=== PATIENT | male | born 1960 | race Caucasian/White ===

== ENCOUNTER → 2019-01-17 | Outpatient (REF) ==
[~2019-01-17] MED LIST: ALB18R INH; AMOX-559 PO; AZIT-1 PO; BARIUM SULFATE 176 GM BTL PO ONE; BARIUM SULFATE 340 GM POWD ONE; CIPR-214 PO; CYCL10TA29 PO; DOCU-416 PO; HYDR-653 PO; KET10 PO; ONDA4TAB97 PO; OXYC-865 PO; PANT40SU3 PO; PRED20TA6 PO
--- NOTE | 2019-01-17 13:40 | RADIOLOGY IMAGING REPORT ---
FACILITY: [facility] PATIENT NAME: Delano Bal : 1960 MR: [id number] V: [id number] EXAM DATE: ORDERING PHYSICIAN: EDYTA DELUCA TECHNOLOGIST: Location: [facility] - [place] Patient: Delano Bal : 1960 Visit/Account:[id number] Date of Sevice: 01/17/2019 TESTICULAR HISTORY: Left testicular swelling COMPARISON: None. FINDINGS: Testes: Right testicle measures 4.4 x 2.7 x 2.8 cm. The left testicle measures 4.5 x 2.9 x 2.9 cm. Symmetric and unremarkable blood flow documented by color and Duplex Doppler ultrasound. Epididymides: Not visualized at this time ultrasound. Hydrocele: Very large on the left and small on the right Varicocele: None. IMPRESSION: Very large left hydrocele Small right hydrocele Report Dictated By: Nahed Khoury MD at 01/17/2019 1:30 PM Report E-Signed By: Nahed Khoury MD at 01/17/2019 1:31 PM WSN:[email or web address]
--- NOTE | 2019-01-17 13:58 | RADIOLOGY IMAGING REPORT ---
[place] [facility] [place]IENT NAME: Delano Bal : 1960 MR: [id number] V: [id number] EXAM DATE: ORDERING PHYSICIAN: EDYTA DELUCA TECHNOLOGIST: Location: [facility] - [place] Patient: Delano Bal : 1960 Visit/Account:[id number] Date of Sevice: 01/17/2019 Exam type: XR UPPER GI SERIES W/O KUB History: Vomiting 30 minutes after eating Comparison: Acute abdomen series February 26, 2015. Findings: Double contrast upper chest series was performed with thick and thin barium. There is a small slidin g hiatal hernia with a large amount of gastroesophageal reflux observed. There is very mild narrowin g of the lower esophageal sphincter. No abnormality of the stomach duodenal bulb or duodenal C-loop was seen. Incidentally noted is an approximate 1.6 cm nodule in the left lower lobe. This appears relatively u nchanged when compared to the prior acute abdomen series of February 26, 2015 The dose area product is 497.14 micro-Wang per meter squared IMPRESSION: 1. Small sliding hiatal hernia with a large amount of gastroesophageal reflux. Very mild narrowing of the lower esophageal sphincter Incidental note of an approximate 1.6 cm nodule in the left lower lobe. This appears well totally un changed when compared to the prior acute abdomen series dated February 26, 2015 Report Dictated By: Nahed Khoury MD at 01/17/2019 1:44 PM Report E-Signed By: Nahed Khoury MD at 01/17/2019 1:50 PM WSN:[email or web address]
== END ==
LOC: US 01:07
PROVIDERS: ATTEND Nurse Practitioner
DX: N43.3 Hydrocele, unspecified (principal); K44.9 Diaphragmatic hernia without obstruction or gangrene; K21.9 Gastro-esophageal reflux disease without esophagitis
CPT/HCPCS: 74240; 76870